=== PATIENT | female | born 1950 | race Caucasian/White ===

== ENCOUNTER 2022-01-04 07:37 | Outpatient (CLI) | payer MEDICARE | END 2022-01-04 07:38 | disposition home or self-care (01) | LOC: ULT 07:37 | PROVIDERS: ATTEND Internal Medicine Gastroenterology | DX: R10.32 Left lower quadrant pain (principal); R19.7 Diarrhea, unspecified; I10 Essential (primary) hypertension; E66.9 Obesity, unspecified; K76.0 Fatty (change of) liver, not elsewhere classified; R16.1 Splenomegaly, not elsewhere classified | CPT/HCPCS: 76700 ==